=== PATIENT | male | born 2000 | race Caucasian/White ===

== ENCOUNTER 2024-05-14 12:43 | Day surgery (SDC) | payer OTHER ==
--- NOTE | 2024-05-14 06:26 | P.GSHP ---
History of Present Illness H&P Date: 05/14/24 CHIEF COMPLAINT: Pilonidal sinus HISTORY OF PRESENT ILLNESS: The patient is a 24 year-old male who presents with painful bilateral long complicated abscess, pilonidal cyst. Despite antibiotics, patient reports persistent symptoms. He presents today for incision and drainage. PAST MEDICAL HISTORY: Please see list. PAST SURGICAL HISTORY: Please see list. MEDICATIONS: Please see list. ALLERGIES: Please see list. SOCIAL HISTORY: Please see list. FAMILY HISTORY: No reports of Crohn disease or ulcerative colitis. REVIEW OF ORGAN SYSTEMS: CONSTITUTIONAL: No reports of fevers or chills. GI: Denies any blood in stools or constipation. PHYSICAL EXAM: VITAL SIGNS: Stable Musculoskeletal: No clubbing cyanosis or edema SKIN: Pilonidal abscess buttock GENERAL: Well developed and in no acute distress. Pleasant. HEENT: No sclera icterus. Extraocular movements grossly intact. Moist buccal mucosa. Head is atraumatic, normocephalic. Hears conversational speech. No nasal drainage. NECK: Supple without lymphadenopathy. No JV distention. CHEST: Non-labored respirations and equal bilateral excursions. CARDIOVASCULAR: Regular rate and rhythm. Palpable 2+ radial pulses. ABDOMEN: Soft. Non-tender. Nondistended. NEUROLOGIC: No focal or lateralizing signs. PSYCH: Appropriate affect. Alert and oriented to person, place and time. ASSESSMENT: 1. Pilonidal abscess PLAN: 1. Will proceed of incision and drainage of pilonidal abscess cultures 2. DVT prophylaxis. 3. Antibiotic prophylaxis. 4. Time of recovery, at least one week. Past Medical History Past Medical History: GERD/Reflux Additional Past Medical History / Comment(s): pilonidal cyst History of Any Multi-Drug Resistant Organisms: None Reported Past Surgical History: No Surgical Hx Reported Additional Past Anesthesia/Blood Transfusion Reaction / Comment(s): has never had anesthesia Smoking Status: Never smoker Medications and Allergies Home Medications Medication Instructions Recorded Confirmed Type No Known Home Medications 05/12/24 05/12/24 History Allergies Allergy/AdvReac Type Severity Reaction Status Date / Time No Known Allergies Allergy Verified 05/12/24 13:53
[~2024-05-14 12:43] MED LIST: HYDROmorphone 0.5 MG/0.5 ML SYRINGE IVP PRN; LIDOCAINE 1% (10MG/ML) FOR IV START INTRADERMA PRN; metroNIDAZOLE-NS PMX 500 MG in SALINE 1 100ML.BAG IVPB PRN
[2024-05-14 13:32] LABS: Basophils % (A) 0 %; Eosinophils # (A) 0.1 k/uL (0-0.7); Eosinophils % (A) 2 %; HCT 47.3 % (39.0-53.0); HGB 15.8 gm/dL (13.0-17.5); Lymphocytes # (A) 1.8 k/uL (1.0-4.8); Lymphocytes % (A) 29 %; MCH 29.3 pg (25.0-35.0); MCHC 33.3 g/dL (31.0-37.0); MCV 88.1 fL (80.0-100.0); Mean Platelet Volume 8.6; Monocytes # (A) 0.3 k/uL (0-1.0); Monocytes % (A) 4 %; Neutrophils % (A) 63 %; Platelet Count 224 k/uL (150-450); RBC 5.37 m/uL (4.30-5.90); WBC 6.3 k/uL (3.8-10.6)
[2024-05-14] MEDS: IV FLUID CONTINUATION 1,000 ML IV ONE (13:34)
[2024-05-14] MEDS: LACTATED RINGERS 1,000 ML IV SCH (13:47)
[2024-05-14] MEDS: ACETAMINOPHEN TAB 500 MG TAB PO PRN (13:51)
[2024-05-14] MEDS: ONDANSETRON 4 MG/2 ML VIAL IVP PRN (13:53)
[2024-05-14] MEDS: HEPARIN SODIUM,PORCINE 5,000 UNIT/ML 1 ML VIAL SQ PRN (13:53)
[2024-05-14] MEDS ORDERED: MIDAZOLAM 2 MG/2 ML VIAL ONE (14:34)
[2024-05-14] MEDS ORDERED: fentaNYL (PF) 50 MCG/ML 2 ML AMP ONE (14:34)
[2024-05-14] MEDS ORDERED: LIDOCAINE 1% INJ 10MG/ML (20 ML MDV) ONE (14:34)
[2024-05-14] MEDS ORDERED: KETOROLAC 15 MG/ML 1 ML VIAL ONE (14:34)
[2024-05-14] MEDS ORDERED: PROPOFOL 10 MG/ML 20 ML VIAL IV ONE (14:34)
[2024-05-14] MEDS ORDERED: SUCCINYLCHOLINE CHLORIDE 200 MG/10 ML VIAL IV ONE (14:34)
[2024-05-14] MEDS: LIDOCAINE 1%-EPI 1:100,000 20 ML VIAL SQ ONE ×2 (15:21→15:24)
[2024-05-14 16:07] VITALS: TEMP 97
[2024-05-14 16:45] VITALS: RESP 20
[2024-05-14 17:16] VITALS: BP 112/72; PULSE 72
--- NOTE | 2024-05-14 21:52 | P.OP ---
Date of Procedure: 05/14/24 Description of Procedure: SURGEON: RADHA JOSHUA MD CONTROL CLERK: None. PREOPERATIVE DIAGNOSES: 1. Complicated pilonidal cyst 2. Attention deficit disorder with attention deficit hyperactivity disorder 3. Gastroesophageal reflux disease POSTOPERATIVE DIAGNOSES: 1. Complicated pilonidal cyst with pilonidal sinus 2. Attention deficit disorder with attention deficit hyperactivity disorder 3. Gastroesophageal reflux disease PROCEDURES PERFORMED: 1. Excision of complicated pilonidal cyst 3 x 1 cm deep to subcutaneous tissue 2. Complex closure of 4 cm incision above the left buttock Anesthesia: GETA, local Estimated Blood Loss (ml): 5 Pathology: 1. Pilonidal cyst with sinus 2. Aerobic anaerobic cultures pilonidal sinus Condition: stable Disposition: PACU COMPLICATIONS: None. Operative Findings: 1. Raised nodule, pilonidal cyst at the superior gluteal cleft, right buttock. 2. Multiple pilonidal crypts at superior gluteal crease without active purulent 3. Excision of nodule with pilonidal sinus incorporating here bundle removed INDICATIONS: The patient is a 24-year-old male who presents with symptomatic pilonidal cyst. Despite conservative treatment, he complains of distant pain and infection. Surgical intervention with patient and drainage. Extensive resection was reviewed including extended healing process of at least 3 months was reviewed. Patient elected for surgical intervention with incision and drainage. Benefits and risks of surgical intervention were described including bleeding, infection, seroma, pain, wound dehiscence and recurrence. Informed consent was obtained. DESCRIPTION OR PROCEDURE: Patient was brought into the operating room. After general induction, he was positioned in prone position. The buttocks including superior gluteal crease was initially cleansed using antibacterial soap followed by rubbing alcohol. Once dried, the skin was shaved. The skin was cleansed again with rubbing alcohol prior to prep. The buttocks were prepped and draped in a standard sterile fashion with ChloraPrep. Ioban draping was placed. Timeout protocol was confirmed with the surgical team regarding the patient's name, procedure to be performed including preoperative medications. DVT prophylaxis was confirmed. A field block was placed of the at the pilonidal cyst above the left buttock. An indelible marker was used to di the cyst and sinus. Initially, a longitudinal elliptical marking was placed over the pilonidal cystic nodule of 1 cm. Separately, the pilonidal cyst was found above the buttock. A separate pilonidal sinus was found along the midline. An elliptical longitudinal incision using #10 blade was made along the marking into the dermis and subcutaneous tissue and fascia of the pilonidal cyst of 1 x 3 cm. Electro-Bovie cautery was used to enter deep into the subcutaneous tissue. No active purulence was identified. No active infection was found. To prevent risk of recurrence, the pilonidal sinus tract was also excised incorporating hair bundle. Bilateral skin flaps were raised to allow for skin closure. 0 Vicryl for the deep subcutaneous tissue was closed with interrupted suture. Next, 3-0 Monocryl in a subcuticular running fashion was used to close the skin. To buttress the closure, 3-0 Monocryl was used as retention sutures for closure 4 cm incision. The skin was cleansed with dilute hydrogen peroxide and Dermabond tape with liquid glue was applied for a third layer closure. The incision was covered with Optifoam dressing. At the end of the procedure, needle, sponge, and instrument count was verified correct by preparatory technician. The patient was transferred into the postanesthesia care unit in stable condition. Wound care instructions were described to the patient's family including anticipated recovery for least 3 months. Plan - Discharge Summary Discharge Rx Participant: No New Discharge Prescriptions: New Ibuprofen [Motrin] 600 mg PO Q8HR PRN #30 tab PRN Reason: Pain Acetaminophen Tab [Tylenol Tab] 1,000 mg PO Q6HR PRN #30 tablet PRN Reason: Pain Discharge Medication List Acetaminophen Tab [Tylenol Tab] 1,000 mg PO Q6HR PRN #30 tablet 05/14/24 [Rx] Ibuprofen [Motrin] 600 mg PO Q8HR PRN #30 tab 05/14/24 [Rx] Follow up Appointment(s)/Referral(s): Radha Joshua MD [STAFF PHYSICIAN] - 05/18/24 1:30 pm Patient Instructions/Handouts: *Surgery [facility] - (Anesthesia) Discharge Instructions Outpatient Surgery, Pilonidal Cyst Excision (DC) Activity/Diet/Wound Care/Special Instructions: DO NOT REMOVE DRESSING. Will be removed in office 05/18/24 No deep squats or lifting over 10 pounds 2 weeks, 05/28/2024 May shower BUT KEEP DRESSING DRY No bath tub soaks for 2 weeks, 05/28/2024 Diet as tolerated. Use Tylenol scheduled for the next 24-48 hours for best pain relief. Discharge Disposition: HOME SELF-CARE
== END 2024-05-14 17:18 | disposition home or self-care (01) ==
LOC: OR 12:43
PROVIDERS: ATTEND Surgery Plastic and Reconstructive Surgery
DX: L05.01 Pilonidal cyst with abscess (principal); F90.9 Attention-deficit hyperactivity disorder, unspecified type; K21.9 Gastro-esophageal reflux disease without esophagitis
CPT/HCPCS: 11772; 88304; 85025; 87070; 87205; 87075; J2250; J0330; J1644; J0690; J2405; J2003; J3010; J1885; J2704